=== PATIENT | male | born 1990 | race Caucasian/White ===

== ENCOUNTER 2018-02-11 00:15 | Inpatient (IN) | payer OTHER ==
[2018-02-11] MEDS ORDERED: DIPH,PERTUS(ACELL)TETVAC-LF 0.5 ML VIAL IM ONE (00:17)
[2018-02-11] MEDS ORDERED: RX INFO: IV CONTRAST WAS GIVEN 1 EACH MISC MISCELLANE PRN (00:17)
[2018-02-11] MEDS ORDERED: MORPHINE SULFATE 4 MG/ML SYRINGE IV STA (00:18)
[2018-02-11 00:30] LABS: Basophils # (A) 0.1 k/uL (0-0.2); Basophils % (A) 0 %; Eosinophils # (A) 0.1 k/uL (0-0.7); Eosinophils % (A) 1 %; HCT 41.6 % (39.0-53.0); HGB 14.3 gm/dL (13.0-17.5); Lymphocytes # (A) 2.4 k/uL (1.0-4.8); Lymphocytes % (A) 11 %; MCH 32.4 pg (25.0-35.0); MCHC 34.3 g/dL (31.0-37.0); MCV 94.4 fL (80.0-100.0); Mean Platelet Volume 6.3; Monocytes % (A) 5 %; Neutrophils # (A) 17.5 k/uL (1.3-7.7); Neutrophils % (A) 82 %; Platelet Count 323 k/uL (150-450); RDW 12.3 % (11.5-15.5); WBC 21.4 k/uL (3.8-10.6)
[2018-02-11] MEDS ORDERED: ONDANSETRON 4 MG/2 ML VIAL IVP STA (00:31)
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
[2018-02-11 00:36] LABS: INR 1.1 (<1.2); Partial Thromboplastin Time 22.9 sec (22.0-30.0); Prothrombin Time 10.6 sec (9.0-12.0)
[2018-02-11 00:38] LABS: Albumin 4.4 g/dL (3.5-5.0); Amylase 65 U/L (30-110); Anion Gap 17 mmol/L; Calcium 8.7 mg/dL (8.4-10.2); Carbon Dioxide 20 mmol/L (22-30); Chloride 106 mmol/L (98-107); Glucose 112 mg/dL (74-99); Lipase 156 U/L (23-300); Sodium 143 mmol/L (137-145); Total Bilirubin 0.8 mg/dL (0.2-1.3); Total Protein 6.7 g/dL (6.3-8.2)
[2018-02-11] MEDS ORDERED: ETOMIDATE 2 MG/ML 10 ML VIAL IV STA (00:38)
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
[2018-02-11 00:42] LABS: Alcohol 250 mg/dL
[2018-02-11 00:44] LABS: ALT 108 U/L (21-72); AST 222 U/L (17-59); Alkaline Phosphatase 37 U/L (38-126); Blood Urea Nitrogen 15 mg/dL (9-20)
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
[2018-02-11 01:00] LABS: Creatine Kinase MB 8.5 ng/mL (0.0-2.4); Troponin I 0.016 ng/mL (0.000-0.034)
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
[2018-02-11] MEDS ORDERED: ETOMIDATE 2 MG/ML 10 ML VIAL IVP STA (01:05)
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
--- NOTE | 2018-02-11 01:33 | XR ---
EXAMINATION TYPE: XR Hip Limited LT DATE OF EXAM: 02/11/2018 COMPARISON: NONE HISTORY: Post reduction TECHNIQUE: Single view FINDINGS: There is anatomic reduction of the left hip joint. There is a 2 x 1 cm linear bony density projected over the lateral acetabulum consistent with the posterior chip fracture. IMPRESSION: Satisfactory reduction.
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
[2018-02-11] MEDS ORDERED: NALOXONE 0.4 MG/ML 1 ML VIAL IV PRN (02:47)
[2018-02-11] MEDS ORDERED: ONDANSETRON 4 MG/2 ML VIAL IVP PRN (02:47)
[2018-02-11] MEDS: MORPHINE SULFATE 4 MG/ML SYRINGE IV PRN ×5 (03:35→15:38)
[2018-02-11 03:43] VITALS: BMI 25.4
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
[2018-02-11] MEDS: SODIUM CHLORIDE 0.9% 1,000 ML IV SCH ×2 (05:33→12:49)
[2018-02-11] MEDS ORDERED: LORazepam 2 MG/ML INJ IV PRN ×3 (08:44)
[2018-02-11] MEDS ORDERED: THIAMINE 100 MG/ML 2 ML VIAL IM STA (08:44)
[2018-02-11] MEDS ORDERED: DIAZEPAM 5 MG TAB PO PRN (08:45)
[2018-02-11] MEDS ORDERED: traMADol 50 MG TAB PO PRN (08:46)
[2018-02-11] MEDS ORDERED: HYDROcodone/APAP 5-325MG 1 EACH TAB PO PRN (08:51)
[2018-02-11 08:56] VITALS: RESP 18; TEMP 98.1
[2018-02-11] MEDS ORDERED: FAMOTIDINE 20 MG TAB PO SCH (09:00)
[2018-02-11] MEDS: HYDROcodone/APAP 5-325MG 1 EACH TAB PO PRN ×2 (09:24→15:04)
[2018-02-11] MEDS ORDERED: MORPHINE SULFATE 4 MG/ML SYRINGE IVP ONE (09:35)
[2018-02-11 09:54] LABS: HCT 38.9 % (39.0-53.0); HGB 12.9 gm/dL (13.0-17.5); MCH 32.2 pg (25.0-35.0); MCHC 33.2 g/dL (31.0-37.0); MCV 97.1 fL (80.0-100.0); Platelet Count 268 k/uL (150-450); RBC 4.01 m/uL (4.30-5.90); RDW 12.7 % (11.5-15.5); WBC 20.1 k/uL (3.8-10.6)
[2018-02-11 09:59] LABS: ALT 111 U/L (21-72); AST 218 U/L (17-59); Albumin 4.1 g/dL (3.5-5.0); Alkaline Phosphatase 45 U/L (38-126); Anion Gap 16 mmol/L; Blood Urea Nitrogen 13 mg/dL (9-20); Calcium 8.5 mg/dL (8.4-10.2); Carbon Dioxide 18 mmol/L (22-30); Chloride 109 mmol/L (98-107); Glucose 112 mg/dL (74-99); Magnesium 1.9 mg/dL (1.6-2.3); Phosphorus 3.5 mg/dL (2.5-4.5); Sodium 143 mmol/L (137-145); Total Bilirubin 0.8 mg/dL (0.2-1.3); Total Protein 6.1 g/dL (6.3-8.2)
[2018-02-11 10:00] LABS: Glucose,Whole Blood 120 mg/dL (75-99)
[2018-02-11 10:09] LABS: Lipase 2188 U/L (23-300)
[2018-02-11 10:10] LABS: Creatine Kinase 1981 U/L (55-170)
--- NOTE | 2018-02-11 10:14 | P.PN ---
Progress Note - Text Progress Note Date: 02/11/18 On secondary survery patient is more awake and alert, c-spine is cleared, he is complaining of left knee and ankle pain, Xrays ordered for left knee and ankle.
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
[2018-02-11] MEDS ORDERED: NICOTINE 14MG/24HR PATCH TRANSDERM SCH (10:45)
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
[2018-02-11 13:04] VITALS: BP 124/64; PULSE 73
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
[2018-02-11] MEDS ORDERED: THIAMINE 100 MG TAB PO SCH (17:00)
== END 2018-02-11 16:05 | disposition other institution (70) | DRG 536 ==
LOC: EDBD → EC 00:15 → 6SEL 02:47
PROVIDERS: ADMIT Orthopaedic Surgery; ATTEND Orthopaedic Surgery
PROC: 0QS5XZZ Reposition Left Acetabulum, External Approach (ICD-10-PCS; principal; 2018-02-11)
PROC: 0JQF3ZZ Repair Left Upper Arm Subcutaneous Tissue and Fascia, Percutaneous Approach (ICD-10-PCS; 2018-02-11)
PROC: 3E0234Z Introduction of Serum, Toxoid and Vaccine into Muscle, Percutaneous Approach (ICD-10-PCS; 2018-02-11)
DX: S32.422A Displaced fracture of posterior wall of left acetabulum, initial encounter for closed fracture (principal); S73.015A Posterior dislocation of left hip, initial encounter; S82.002A Unspecified fracture of left patella, initial encounter for closed fracture; E87.2 Acidosis; S76.111A Strain of right quadriceps muscle, fascia and tendon, initial encounter; V43.52XA Car driver injured in collision with other type car in traffic accident, initial encounter; Y92.410 Unspecified street and highway as the place of occurrence of the external cause; Z63.8 Other specified problems related to primary support group; S41.112A Laceration without foreign body of left upper arm, initial encounter; K70.10 Alcoholic hepatitis without ascites; F17.200 Nicotine dependence, unspecified, uncomplicated; F10.129 Alcohol abuse with intoxication, unspecified; D72.829 Elevated white blood cell count, unspecified; R00.0 Tachycardia, unspecified; R94.5 Abnormal results of liver function studies; Y90.8 Blood alcohol level of 240 mg/100 ml or more; M25.522 Pain in left elbow; Z82.49 Family history of ischemic heart disease and other diseases of the circulatory system; Z23 Encounter for immunization
CPT/HCPCS: 27250; 36415; 70450; 71045; 71260; 72125; 72170; 73501; 74177; 80053; 80320; 82150; 82550; 82553; 83605; 83690; 83735; 84100; 84145; 84484; 85025; 85027; 85610; 85730; 86850; 86900; 86901; 90471; 90715; 93005; 96374; 96375; 99285